=== PATIENT | male | born 1970 | race Caucasian/White ===

== ENCOUNTER 2017-10-23 12:06 | Emergency (ER) | payer OTHER ==
[~2017-10-23] VITALS: Ht 182.9 cm; Wt 75.0 kg
[2017-10-23] MEDS ORDERED: SODIUM CHLOR 0.9% 1000 ML INJ 1,000 ML IV SCH (12:16)
--- NOTE | 2017-10-23 12:23 | PD ---
HPI Chief Complaint: NAUSEA Time Seen by Provider: 12:16 Travel History International Travel<30 days: No Contact w/Intl Traveler<30days: No Traveled to known affect area: No History of Present Illness HPI 47-year-old male presents via EMS for evaluation of nausea, paresthesias. Reports that prior to arrival he was running the local half marathon and then he ran the 5K option immediately afterwards for a total of 16 miles. Shortly thereafter he developed nausea, paresthesias in his fingers bilaterally. He reports that it felt like his blood sugar was low. He requested that paramedics be called and they brought him here. He currently is feeling improved, still slight nausea but the paresthesias have resolved. Symptoms are mild to moderate, aggravated by running, alleviated by rest. He denies any associated symptoms such as headache, blurred vision, chest pain, shortness of breath, vomiting, abdominal pain. He does report a history of status post cardiac arrest in February 2017 with a defibrillator placement. This occurred in [place]. He was also told that he may have SVT although he is unclear in regards to his history. He denies any palpitations. He has no other complaints at this time. [facility] Social History Alcohol Use: Yes Tobacco Use: No Allergies-Medications (Allergen,Severity, Reaction): Coded Allergies: Corticosteroids (Glucocorticoids) (Verified Allergy, Unknown, 10/23/17) Penicillins (Verified Allergy, Unknown, 10/23/17) Reported Meds & Prescriptions Reported Meds & Active Scripts Active Reported Carvedilol 3.125 Mg Tab 3.125 Mg PO BID Review of Systems Except as stated in HPI: all other systems reviewed are Neg Physical Exam Narrative GENERAL: Well-developed well-nourished male in no acute distress resting comfortably in hospital bed. SKIN: Warm and moist. HEAD: Atraumatic. Normocephalic. EYES: Pupils equal and round reactive to light extraocular muscles are intact. No scleral icterus. No injection or drainage. ENT: No nasal bleeding or discharge. Mucous membranes pink and moist. NECK: Trachea midline. No JVD. CARDIOVASCULAR: Regular rate and rhythm. No murmur appreciated. Defibrillator implant noted left upper chest wall. RESPIRATORY: No accessory muscle use. Clear to auscultation. Breath sounds equal bilaterally. GASTROINTESTINAL: Abdomen soft, non-tender, nondistended. Hepatic and splenic margins not palpable. MUSCULOSKELETAL: No obvious deformities. No clubbing. No cyanosis. No edema. NEUROLOGICAL: Awake and alert. No obvious cranial nerve deficits. Motor grossly within normal limits. Normal speech. PSYCHIATRIC: Appropriate mood and affect; insight and judgment normal. Data Data Last Documented VS Vital Signs Date Time Temp Pulse Resp B/P (MAP) Pulse Ox O2 Delivery O2 Flow Rate FiO2 10/23/17 12:39 78 18 100 Room Air 10/23/17 12:35 98.9 123/70 (87) Orders Orders Basic Metabolic Panel (Bmp) (10/23/17 12:16) Ondansetron Inj (Zofran Inj) (10/23/17 12:30) Sodium Chlor 0.9% 1000 Ml Inj (Ns 1000 M (10/23/17 12:16) Electrocardiogram (10/23/17 12:16) Magnesium (Mg) (10/23/17 12:16) Blood Glucose (10/23/17 12:16) Ed Discharge Order (10/23/17 13:17) Labs Laboratory Tests Test 10/23/17 12:20 Blood Urea Nitrogen 22 MG/DL Creatinine 1.73 MG/DL Random Glucose 87 MG/DL Calcium Level 8.9 MG/DL Magnesium Level 1.8 MG/DL Sodium Level 142 MEQ/L Potassium Level 4.3 MEQ/L Chloride Level 108 MEQ/L Carbon Dioxide Level 26.5 MEQ/L Anion Gap 8 MEQ/L Estimat Glomerular Filtration Rate 43 ML/MIN MDM Medical Decision Making Medical Screen Exam Complete: Yes Emergency Medical Condition: Yes Medical Record Reviewed: Yes Differential Diagnosis Hypoglycemia, dehydration, electrolyte abnormality, hypotensive episode, vasovagal episode, arrhythmia Narrative Course 47-year-old male who developed nausea and paresthesias after running 16 miles with no other associated symptoms. Currently feels improved. He received 200 mL of IV normal saline via EMS in route. Likely his symptoms were secondary to dehydration and possibly hypoglycemic episode. Plan is for basic lab work and EKG. He will be given IV fluids, Zofran. Upon reexamination he feels improved, asymptomatic, quite hungry and requesting Gatorade and crackers which will be provided to him. His lab work has been reviewed. He does have a BUN of 22, creatinine 1.73, GFR 43, we have no baseline GFR in record. His primary care physician is in [place]. He will be given a copy of his lab work to follow-up with his primary care physician and compared to baseline. This could be an acute kidney injury secondary to dehydration or chronic kidney disease. This was discussed with him in great detail. His electrolytes are unremarkable. EKG normal sinus rhythm. Extended cardiac monitoring reveals sinus rhythm. Is stable for discharge. Diagnosis Primary Impression: Nausea Additional Impressions: Renal insufficiency Dehydration Additional Instructions: As discussed, follow-up this week with your primary care physician to discuss your renal function. Stay well hydrated and well nourished, get plenty of rest. Return for any acutely new or worsening symptoms. Med/Other Pt SpecificInfo: No Change to Meds Disposition: 01 DISCHARGE HOME Condition: Stable Brandon Hurt Oct 23, 2017 12:23
[2017-10-23] MEDS ORDERED: ONDANSETRON HCL 4 MG/2 ML VIAL IVP ONE (12:30)
[2017-10-23] MEDS ORDERED: CARV3.12 PO (12:33)
[2017-10-23 12:35] VITALS: BP 123/70; PULSE 78; RESP 16; TEMP 98.9; O2SAT 100
[2017-10-23 12:58] LABS: BICARBONATE 26.5 MEQ/L (21.0-32.0); CALCIUM 8.9 MG/DL (8.5-10.1); CREATININE 1.73 MG/DL (0.60-1.30); MAGNESIUM 1.8 MG/DL (1.5-2.5)
--- NOTE | 2017-10-24 23:07 | EKG ---
Date Performed: 10/23/2017 Time Performed: 12:24:13 PTAGE: 47 years EKG: Sinus rhythm NORMAL ECG NO PREVIOUS TRACING DOCTOR: Abbie Urena Interpretating Date/Time 10/24/2017 23:04:06
== END 2017-10-23 13:31 | disposition home or self-care (01) ==
LOC: NEPC 12:06
DX: R11.0 Nausea (principal); N28.9 Disorder of kidney and ureter, unspecified; E86.0 Dehydration; Z88.0 Allergy status to penicillin; Z88.8 Allergy status to other drugs, medicaments and biological substances; Z79.899 Other long term (current) drug therapy
CPT/HCPCS: 80048; 83735; 93005; 96361; 96374; 99284; J2405; J7030